=== PATIENT | male | born 1980 | race Caucasian/White ===

== ENCOUNTER 2018-04-12 09:46 | Emergency (ER) | payer OTHER ==
--- NOTE | 2018-04-12 10:21 | EDPHY ---
H & P Time Seen by Provider: 04/12/18 09:47 HPI/ROS: CHIEF COMPLAINT: Perianal abscess recheck HISTORY OF PRESENT ILLNESS: 38-year-old immunocompetent male with up-to-date tetanu in the ER for re-evaluation of perianal abscess which was incised and drained yesterday (Friday) At [facility] ER. He describes 4 days of progressively enlarging tender area at the 5:00 a.m. Perianal position. No rectal foreign body insertion. No fever no chills. He was told to go to [facility] for recheck today. Upon going to Urgent Care he was experiencing pain and was referred to the ER for further evaluation. He is not currently on any antibiotics. No history of MRSA. He denies: Fever, chills, pain with defecation, abdominal pain, perineal pain PRIMARY CARE PROVIDER: REVIEW OF SYSTEMS: 10 systems reviewed and negative with the exception of the elements mentioned in the history of present illness PAST MEDICAL & SURGICAL HISTORY: No pertinent medical or surgical history . No history of chronic GI pathology such as ulcerative colitis or Crohn's disease. SOCIAL HISTORY: nonsmoker. PHYSICAL EXAM (Prior to examination, patient consented to physical exam, hands were washed and my usual and customary physical exam procedures followed) 1) GENERAL: Well-developed, well-nourished, alert and oriented. Appears appears nontoxic 2) HEAD: Normocephalic, atraumatic 3) HEENT: Pupils equal, round, reactive to light bilaterally. Sclera anicteric. 4) NECK: Full range of motion, no meningeal signs. 5) LUNGS: Clear auscultation bilaterally, no wheezes, no rhonchi, no retractions. 6) HEART: Regular rate and rhythm, no murmur, no heave, no gallop. 7) ABDOMEN: No guarding, no rebound, no focal tenderness, negative McBurney's, negative Farrell's, negative Rovsing's, negative peritoneal sign, 8) MUSCULOSKELETAL: Moving all extremities, no focal areas of tenderness, no obvious trauma. No peripheral edema or discoloration. 9) BACK: No CVA tenderness, no midline vertebral tenderness, no fluctuance, no step-off, no obvious trauma, no visual or palpable abnormality. 10) SKIN: No rash, no petechiae. 11) : Normal male external genitalia no erythema, tenderness or crepitus to the perineum or scrotum. At the 5 o'clock position the perianal region incision is noted with packing, surrounding erythema and tenderness and induration.. DIFFERENTIAL DIAGNOSIS: In no particular order including but not limited to cellulitis, perianal abscess, perirectal abscess. Smoking Status: Never smoked Constitutional: Initial Vital Signs Temperature (C) 37.1 C 04/12/18 09:49 Heart Rate 87 04/12/18 09:49 Respiratory Rate 16 04/12/18 09:49 Blood Pressure 135/87 H 04/12/18 09:49 O2 Sat (%) 97 04/12/18 09:49 O2 Delivery Mode Room Air Allergies/Adverse Reactions: Sulfa (Sulfonamide Antibiotics) Allergy (Verified 04/12/18 09:48) Home Medications: Medication Instructions Recorded Cephalexin [Keflex] 500 mg PO TID 10 Days cap 04/12/18 Oxycodone Ir (*) 04/12/18 MDM/Departure - MDM Imaging Results: Imaging Impressions Pelvis CT 04/12/18 10:58 Impression: Postsurgical changes are seen of drainage from the recent perianal abscess with cellulitis in the buttocks region and the perianal region bilaterally, right greater than left. Images reviewed myself Medications Given: Discontinued Medications Cephalexin HCl (Keflex) 500 mg PO EDNOW ONE PRN Reason: Protocol Stop: 04/12/18 10:24 Last Admin: 04/12/18 10:43 Dose: 500 mg Hydromorphone HCl (Dilaudid) 1 mg IVP EDNOW ONE Stop: 04/12/18 10:37 Last Admin: 04/12/18 10:43 Dose: 1 mg Cefazolin Sodium/Dextrose (Ancef 1 Gm (Premix)) 50 mls @ 200 mls/hr IV EDNOW ONE PRN Reason: Protocol Stop: 04/12/18 10:50 Last Admin: 04/12/18 10:43 Dose: 50 mls Ondansetron HCl (Zofran) 4 mg IVP EDNOW ONE Stop: 04/12/18 10:37 Last Admin: 04/12/18 10:43 Dose: 4 mg ED Course/Re-evaluation: 1143 am: CT imaging negative for perirectal abscess and/or fistula. Cellulitis changes noted. Patient has had relief of pain with IV Dilaudid. He was given dose of IV Ancef. He is not currently on any pre-hospital antibiotics. He has no clinical evidence of Oralia's gangrene or perineal or scrotal involvement. CT imaging performed to evaluate possible perirectal extension and/or visible fistula. None are visualized on CT. He is not currently on antibiotics. He does have surrounding cellulitic changes and no history of MRSA. He will be started on Keflex, given IV Ancef in the ER. Today is Friday. Recommend he see general surgery tomorrow and provided this referral information. I do not think that hospitalization is indicated at this time. Care of patient under supervision of secondary Supervising physician Dr Mauricio Cano with whom I discussed case. - Depart Disposition: Home, Routine, Self-Care Clinical Impression: Perianal abscess Condition: Good Instructions: Rectal Abscess (ED) Additional Instructions: Recommend Sitz baths, increase fiber and fluid intake. Take your antibiotics as directed. Return to the ER if you have worsening pain, fever chills or any other symptoms that concern you. Prescriptions: Cephalexin [Keflex] 500 mg PO TID 10 Days cap Referrals: Shaka Gilliland MD [Medical Doctor] - 1 day without fail
[2018-04-12] MEDS ORDERED: CEPHALEXIN 500 MG CAP PO ONE (10:23)
[2018-04-12] MEDS ORDERED: ONDANSETRON 4 MG/2 ML VIAL IVP ONE (10:36)
[2018-04-12] MEDS ORDERED: HYDROmorphONE/DILAUDID 1 MG/ML INJ IVP ONE (10:36)
[2018-04-12] MEDS ORDERED: IOPAMIDOL (ISOVUE-300) 100 ML BTL ONE (11:12)
[2018-04-12 12:21] VITALS: BP 120/73
== END 2018-04-12 12:22 | disposition home or self-care (01) ==
DX: K61.0 Anal abscess (principal)
CPT/HCPCS: 82435-PO; 82565-PO; 82947-PO; 84132-PO; 84295-PO; 84520-PO; 85014-PO; 96374; J0690; J1170; J2405; Q9967